=== PATIENT | female | born 1950 | race African-American/Black ===

== ENCOUNTER 2020-12-04 19:19 | Emergency (ER) | payer BC, MEDICAID, MEDICARE ==
[~2020-12-04] VITALS: Ht 167.6 cm; Wt 56.7 kg
[2020-12-04] MEDS ORDERED: IBUPROFEN 600 MG TABLET ONE (20:09)
[2020-12-04] MEDS ORDERED: IBUPROFEN 600 MG TABLET PO ONE (20:15)
--- NOTE | 2020-12-04 20:52 | NUR ---
Jacques US tech, at bed side for scan
--- NOTE | 2020-12-04 21:27 | NUR ---
Patient discharged to home in stable condition. Written and verbal after care instructions given. Patient verbalizes understanding of instructions. Stressed follow up or return to ER for worsening s/s.
[2020-12-04] MEDS ORDERED: IBUP-1955 PO (21:30)
[2020-12-04 21:32] VITALS: BP 156/87
== END 2020-12-04 21:32 | disposition home or self-care (01) ==
LOC: ER 19:19
DX: M79.89 Other specified soft tissue disorders (principal); M25.462 Effusion, left knee; M25.562 Pain in left knee; M17.12 Unilateral primary osteoarthritis, left knee; R03.0 Elevated blood-pressure reading, without diagnosis of hypertension
CPT/HCPCS: A4663